=== PATIENT | female | born 1960 | race Two or more races ===

== ENCOUNTER 2017-07-16 06:10 | Day surgery (SDC) | payer OTHER ==
[~2017-07-16 06:10] MED LIST: ATENOLOL50 MG PO; EFFEXOR XR75 MG PO
[2017-07-16] MEDS ORDERED: PERCOCET 5-3251 EACH PO (11:28)
== END 2017-07-16 13:15 | disposition home or self-care (01) ==
LOC: CIR.AMB 06:10
DX: N72 Inflammatory disease of cervix uteri (principal)